=== PATIENT | male | born 1980 | race Caucasian/White ===

== ENCOUNTER 2025-06-12 12:27 | Emergency (ER) | payer OTHER, SELFPAY ==
[2025-06-12 12:43] VITALS: BP 143/90
[2025-06-12 13:06] LABS: Hematocrit 46.3 % (39.0-52.0); Hemoglobin 16.8 g/dL (13.0-18.0); Mean Corp Hgb Conc. 36.3 g/dL (33.0-37.0); Mean Corpuscular Volume 81.4 fL (80.0-94.0); Nucleated Red Blood Cells % 0 % (-); Platelet Count 218 10^3/uL (130-400); Red Cell Dist. Width 12.4 % (11.5-14.5)
[2025-06-12 13:30] LABS: Troponin I < 0.012 ng/ml
[2025-06-12 13:31] LABS: ALT (SGPT) 38 U/L (0-50); AST (SGOT) 27 U/L (17-59); Albumin 4.5 g/dl (3.5-5.0); Alkaline Phosphatase 110 U/L (38-126); Blood Urea Nitrogen 11 mg/dl (9-20); Calcium 9.2 mg/dl (8.4-10.2); Carbon Dioxide 26 mmol/L (22-30); Chloride 101 mmol/L (98-107); Glucose 368 mg/dl (70-99); Potassium 4.5 mmol/L (3.5-5.1); Sodium 134 mmol/L (135-145); Total Protein 7.1 g/dl (6.3-8.2); eGFR > 60.00
[2025-06-12 15:50] VITALS: BP 132/99
[2025-06-12] MEDS: NSS 1000 IV (15:58)
[2025-06-12] MEDS: NOVOLOG vial 10 UNITS SC (15:58)
[2025-06-12 16:05] VITALS: BMI 31.2
[2025-06-12 16:44] LABS: Troponin I < 0.012 ng/ml
[2025-06-12 17:00] LABS: Glucose - Point of Care 297 mg/dl (70-99)
--- NOTE | 2025-06-12 17:24 | ED.GENMED ---
History of Present Illness
General
Chief Complaint: Chest Pain
Time Seen by Provider: 06/12/25 15:23
History of Present Illness
History of Present Illness:
44-year-old male presents the emergency department for evaluation of chest pain that has been ongoing for the past 1 to 2 hours. No obvious provoking or palliating factors. He reports shortness of breath. Symptoms worsen with movement. The pain
woke him up from sleep at 11 AM today. He did take baby aspirin prior to arrival. No fevers, chills, sweats, nausea, vomiting, or diarrhea. He does note recent increased urination and thirst but feels as though this is due to 'poor diet' as he
eats a lot of junk food overnight. Does not routinely seek primary care
Past History
Past History
ED Past Medical History: Other (Kidney stones); Negative IDDM or NIDDM
ED Past Surgical History: Orthopedic; Negative Cardiac or Cholecystectomy
Social History
Tobacco: Non-smoker
Alcohol: None
Drug: None
Personal:
Living: with family
Employment: Employed
Family History
Family History: Other
Review of Systems
Review of Systems
Allergies reviewed?: Yes
All Other Systems: ROS reviewed and negative except as documented in HPI and ROS
Phy Exam
Physical Exam
Physical Exam:
GEN: Well appearing, NAD, WDWN
HEENT: Oral mucosa moist, no scleral icterus
Cardiac: Regular rate and rhythm, no murmur
Lung: No respiratory distress, no tachypnea, lungs clear to auscultation bilaterally
MSK: No gross deformity or injuries
Skin: Good color, no pallor or jaundice, no rashes
Neuro: AO x3, moves all extremities freely
Psych: Calm, cooperative
Scores
Heart Score for Chest Pain Patients
STEMI patient?: No
History: Slightly or Non-Suspicious
ECG: Normal
Age: >45 - <65 years
Risk Factors: 1 or 2 Risk Factors
Troponin: </= Normal Limit
Heart Score for Chest Pain Patients: 2
Heart Score Risk: 2.5% MACE over next 6 weeks
Course
Orders/Labs/Results
Orders:
Orders
06/12/25 12:28
Electrocardiogram (*1) Urgent
Reason for Study: Chest Pain
EKG- Treatment ONCE
06/12/25 12:43
CR Chest - 2 Views Urgent
Comment:
Reason For Exam: chest pain, SOB
06/12/25 12:54
Complete Blood Count/With Diff Urgent
Comprehensive Metabolic Panel Urgent
Troponin I Urgent
06/12/25 15:36
EKG- Treatment ONCE
0.9% Sodium Chloride 1000 ml [Nss] 1,000 ml IV BOLUS
Insulin Aspart [NOVOLOG vial] 10 units SC NOW STA
06/12/25 16:00
Electrocardiogram (*1) Urgent
Reason for Study: Chest Pain
06/12/25 16:03
Troponin I Urgent
Abnormal Lab Results
06/12/25 06/12/25
12:54 16:59
MPV 10.5 H fL
(7.4-10.4)
Sodium 134 L mmol/L
(135-145)
Glucose 368 H mg/dl
(70-99)
POC Glucose 297 H mg/dl
(70-99)
06/12/25 12:54
06/12/25 12:54
Vital Signs
Initial and Last Documented VS:
Initial Vital Signs
Temp Pulse Resp BP Pulse Ox
98.1 F 66 16 143/90 100
06/12/25 12:43 06/12/25 12:43 06/12/25 12:43 06/12/25 12:43 06/12/25 12:43
Last Documented Vital Signs
Temp Pulse Resp BP Pulse Ox
98.1 F 72 15 132/99 96
06/12/25 12:43 06/12/25 17:45 06/12/25 17:45 06/12/25 15:50 06/12/25 17:45
MDM/Problems Addressed
MDM/Problems Addressed:
Patient's cardiac workup is benign. He is noted to be markedly hyperglycemic despite fasting today thus likely indicating new onset diabetes given his polyuria and polydipsia. He was treated with IV fluids and subcutaneous insulin with modest
improvement in glucose. No anion gap or concerns for acidosis. Will start metformin and have him follow-up with primary care, dietary recommendations discussed
Comment
Comment:
EKG initial independently interpreted by me shows normal sinus rhythm with no concerning ST changes. Unchanged delta EKG
*Pulse Oximetry
SaO2: 98
Oxygen Mode of Delivery: Room air
Patient hypoxic: no
*Critical Care Note
Total Time (30-74mins, 75-104mins- exclusive of procedures): Not Applicable
ED Attending Note
-
Portions of this chart may have been created with voice recognition software.� Occasional wrong word or��sound alike� substitutions may have occurred due to the inherent limitations of voice recognition software.
Discharge Plan
Departure
Patient Disposition: Home (Routine Discharge)
Date of Disposition: 06/12/25
Time of Disposition: 17:24
Patient with high blood pressure during this ER visit?: No
Discharge Problem:
Atypical chest pain, Acute hyperglycemia
Instructions: High blood sugar in adults - ED discharge instructions
Prescriptions:
New
metformin 500 mg tablet
500 mg PO BIDWMEAL Qty: 60 0RF
No Action
ibuprofen 600 MG tablet
600 mg PO Q6H Qty: 30 0RF
Patient Comments:
never took any
ondansetron 4 MG tablet,disintegrating
4 mg PO TIDPRN PRN (Reason: NAUSEA) Qty: 20 0RF
acetaminophen [Tylenol Extra Strength] 500 MG tablet
1,000 mg PO Q6 PRN (Reason: pain)
oxycodone-acetaminophen 5 MG/325 MG tablet
1 tab PO Q4HPRN PRN (Reason: Pain) Qty: 15 0RF
tamsulosin 0.4 MG capsule
0.4 mg PO DAILY Qty: 7 0RF
ondansetron 4 MG tablet,disintegrating
4 mg PO Q8HPRN PRN (Reason: Nausea/Vomiting) Qty: 10 0RF
Referrals:
NONE,* [Active, Internal Medicine]
Activity Restrictions/Additional Instructions:
Increase protein and fats while decreasing carbohydrate intake
Carbohydrates can still be eaten, but limited to complex (aka, not simple sugars/processed sugars)
See your primary doctor in 2-4 weeks for follow up
Interventions
Interventions:
*Risk Screen - Suicide Last Done: 06/12/25 18:23
*General Assessment Last Done: 06/12/25 16:06
*Neglect/Abuse Screening Last Done: 06/12/25 16:06
*ED- Fall Risk Assessment Last Done: 06/12/25 16:06
*ED COVID-19 Vaccine History Last Done: 06/12/25 16:06
*Nursing Disposition Last Done: 06/12/25 18:23
ED- Cardiac Assessment Last Done: 06/12/25 16:06
Discharge Date and Time
Discharge Date/Time: 06/12/25 18:24
Print Language: ITALIAN
== END 2025-06-12 18:24 | disposition home or self-care (01) ==
LOC: EMR 12:27
PROVIDERS: Emergency Medicine; Physician Assistant; EMERGENCY PHYSICIAN Emergency Medicine; FAMILY PHYSICIAN Family Medicine
DX: R07.9 Chest pain, unspecified (principal); R73.9 Hyperglycemia, unspecified; Z87.442 Personal history of urinary calculi
CPT/HCPCS: 96372; 96360; 99285; 71046; 80053; 82962; 84484; 85025; 93005

== ENCOUNTER 2025-06-19 23:29 | Emergency (ER) | payer OTHER, SELFPAY ==
[2025-06-19 23:30] VITALS: BP 124/94
[2025-06-19 23:55] LABS: Hematocrit 44.4 % (39.0-52.0); Hemoglobin 16.1 g/dL (13.0-18.0); Mean Corp Hgb Conc. 36.3 g/dL (33.0-37.0); Mean Corpuscular Volume 81.2 fL (80.0-94.0); Nucleated Red Blood Cells % 0 % (-); Platelet Count 214 10^3/uL (130-400); Red Cell Dist. Width 12.1 % (11.5-14.5)
[2025-06-20 00:21] LABS: ALT (SGPT) 44 U/L (0-50); AST (SGOT) 25 U/L (17-59); Albumin 4.5 g/dl (3.5-5.0); Alkaline Phosphatase 88 U/L (38-126); Blood Urea Nitrogen 14 mg/dl (9-20); Calcium 9.6 mg/dl (8.4-10.2); Carbon Dioxide 23 mmol/L (22-30); Chloride 102 mmol/L (98-107); Glucose 368 mg/dl (70-99); Potassium 4.4 mmol/L (3.5-5.1); Sodium 133 mmol/L (135-145); Total Protein 7.3 g/dl (6.3-8.2); eGFR > 60.00
--- NOTE | 2025-06-20 00:57 | ED.GENMED ---
History of Present Illness
General
Chief Complaint: Blood Sugar Problem
Source: patient
Exam Limitations: none
Time Seen by Provider: 06/20/25 00:55
History of Present Illness
History of Present Illness:
See MDM
Past History
Past History
ED Past Medical History: NIDDM and Other (Kidney stones); Negative IDDM
ED Past Surgical History: Orthopedic; Negative Cardiac or Cholecystectomy
Social History
Tobacco: Non-smoker
Alcohol: None
Drug: None
Personal:
Living: with family
Employment: Employed
Family History
Family History: Other
Phy Exam
Physical Exam
Physical Exam:
See MDM
Course
Orders/Labs/Results
Orders:
Orders
06/19/25 23:38
B-Hydroxybutyrate Urgent
Complete Blood Count/With Diff Urgent
Comprehensive Metabolic Panel Urgent
06/20/25 00:46
0.9% Sodium Chloride 1000 ml [Nss] 1,000 ml IV BOLUS
Insulin Aspart [NOVOLOG vial] 5 units SC NOW STA
Abnormal Lab Results
06/19/25 06/20/25
23:38 02:40
MPV 10.5 H fL
(7.4-10.4)
Abs Immat Gran (auto) 0.1 H 10^3/uL
(0-0.05)
Absolute Monos (auto) 0.7 H 10^3/uL
(0.1-0.6)
Immature Gran % 0.6 H %
(0-0.5)
Sodium 133 L mmol/L
(135-145)
Creatinine 0.6 L mg/dL
(0.7-1.3)
Glucose 368 H mg/dl
(70-99)
Total Bilirubin 1.4 H mg/dl
(0.2-1.3)
POC Glucose 270 H mg/dl
(70-99)
06/19/25 23:38
06/19/25 23:38
Vital Signs
Initial and Last Documented VS:
Initial Vital Signs
Temp Pulse Resp BP Pulse Ox
97.8 F 90 20 124/94 98
06/19/25 23:30 06/19/25 23:30 06/19/25 23:30 06/19/25 23:30 06/19/25 23:30
Last Documented Vital Signs
Temp Pulse Resp BP Pulse Ox
97.8 F 90 20 124/94 98
06/19/25 23:30 06/19/25 23:30 06/19/25 23:30 06/19/25 23:30 06/20/25 01:00
MDM/Problems Addressed
Differential Diagnosis Includes:
Note:
CHIEF COMPLAINT(S)
Blood glucose level significantly elevated at home.
HISTORY OF PRESENT ILLNESS
The patient is a 44-year-old male who presents today due to concerns about elevated blood glucose levels. The patient reports discovering a blood glucose kip and his first recorded reading was approximately 450 mg/dL. The patient�s spouse
recommended coming in for evaluation. The patient noted previous intolerance to Metformin, having experienced migraine headaches after taking it for two days, resulting in discontinuation of the medication. The patient recently saw a primary care
physician and was prescribed Mounjaro (Tirzepatide) but has yet to start it due to concerns about potential side effects.
The patient reports intermittent increased urination, mostly at night, but denies significant symptoms suggestive of a severe diabetic emergency, such as fruity breath or confusion. He is aware of the need for lifestyle adjustment and expressed
concerns about managing diabetes, including the impact of dietary choices on his condition. The patient notes having tried to monitor his blood sugar intermittently, with levels ranging from the 360s to 390s in different settings, such as at home
and during a recent visit to the parking lot.
The patient expresses uncertainty about how seriously to take the condition and acknowledges his spouses concerns about potential health complications. Current plans with his primary care provider include starting Mounjaro and following up in three
weeks for assessment and potential dose adjustment.
SOCIAL DETERMINANTS AFFECTING HEALTH
The patient reports that his urged him to seek medical attention for his symptoms. He expresses uncertainty regarding lifestyle changes needed for managing diabetes and notes dietary indulgence, mentioning carrying candy in his pocket.
MEDICATIONS
- Prescribed and recently filled: Mounjaro (Tirzepatide), not yet taken.
REVIEW OF SYSTEMS
- General: Reports concerns about the elevated blood glucose.
- Renal/Urinary: Reports increased urination mainly at night.
- Neurological: History of migraine headaches associated with Metformin use.
PHYSICAL EXAM
General: Alert, no acute distress.
Skin: Warm, dry.
Head: Normocephalic, atraumatic
Neck: Appears supple, trachea midline.
Eyes, Ears, Nose, Mouth, and Throat: dry mucous membranes
Cardiovascular: No signs of cyanosis. Regular rate and rhythm
Respiratory: Respirations are non-labored. Lungs clear
Abdomen: Non-distended
Musculoskeletal: No deformities
Neurological: No focal neurological deficit observed.
Psychiatric: Cooperative, appropriate mood and affect.
PROBLEM LIST
Acute:
- Hyperglycemia
Chronic:
- Type 2 Diabetes Mellitus with concern for poor treatment adherence and management.
PLAN
- Administer intravenous fluids to help reduce blood glucose levels through dilution.
- Provide a small dose of insulin to assist in reducing hyperglycemia.
- Continue with Mounjaro medication and encourage adherence to the prescribed diabetic management plan.
- Recommend dietary modification focusing on carbohydrate reduction and improved glycemic control.
- Discuss lifestyle changes necessary for managing diabetes and reducing risk factors.
- Confirm follow-up with the primary care physician in three weeks to reassess blood glucose levels and medication efficacy.
DIFFERENTIAL DIAGNOSIS
The Differential Diagnosis includes, in no particular order and is not limited to:
- Diabetic Ketoacidosis (less probable given low symptom severity)
- Hyperosmolar Hyperglycemic State (HHS)
- Hyperglycemia secondary to non-compliance or lifestyle factors.
- Possible intolerance or side effects to current medication regimen.
- Stress-induced hyperglycemia.
- Underlying infection or illness triggering glucose imbalance.
- Medication-induced hyperglycemia.
- White coat hypertension leading to stress-induced hyperglycemia.
- Possible hemoconcentration affecting glucose levels.
- Errors in blood glucose testing.
06/20/25 - 02:43
Blood sugar levels responding to treatment; continue monitoring and adjust insulin coverage as needed. Consider reassessment if levels do not stabilize.
SUMMARY OF ENCOUNTER
The patient, a 44-year-old male, was seen in the emergency department due to significantly elevated blood glucose levels. Upon evaluation, the patient reported home blood glucose readings ranging from 360s to 450 mg/dL. He experienced intolerance to
Metformin due to migraine headaches and thus discontinued its use. Though prescribed Tirzepatide (branded as Mounjaro), he has not started it due to concerns over side effects. The patient admitted to increased urination at night but denied symptoms
like fruity breath or confusion indicative of diabetic ketoacidosis, making DKA less likely. His condition appears exacerbated by poor dietary habits and noncompliance with medication. Emergency management involved administering intravenous fluids
for blood glucose reduction and a small insulin dose, addressing hyperglycemia. The patient discussed dietary changes and plans to initiate the prescribed diabetes management plan with future follow-ups with his primary care physician.
ASSESSMENT
The patient is experiencing hyperglycemia likely due to lifestyle factors and non-compliance with prescribed diabetes treatment.
EMERGENCY TREATMENTS ADMINISTERED
- Intravenous fluids
- Insulin administration
PLAN
- Continue prescribed Tirzepatide (Mounjaro) and reinforce adherence to the diabetes management regimen.
- Encourage dietary modification prioritizing carbohydrate reduction for improved glycemic control.
- Discuss necessary lifestyle changes focusing on comprehensive diabetes management strategies.
- Confirm upcoming follow-up appointment with primary care physician in three weeks for reviewing blood glucose levels and assessing medication efficacy.
PATIENT EDUCATION AND COUNSELING
The patient was educated on the importance of adhering to prescribed medication and implementing dietary changes to control diabetes effectively. Counseling also focused on understanding the risks associated with uncontrolled blood sugar levels.
FOLLOW-UP INSTRUCTIONS
The patient should schedule and attend a follow-up appointment with their primary care physician in three weeks to reassess blood glucose levels and the effectiveness of their diabetes management plan.
MEDICATION RECONCILIATION
- Prescribed but not yet taken: Tirzepatide (Mounjaro)
MEDICAL DECISION MAKING
1. Number and Complexity of Problems Addressed:
- Chronic conditions affecting care: Type 2 Diabetes Mellitus, poor treatment adherence
2. Data:
Category 1:
- Reviewed outpatient pharmacy records for medication Tirzepatide (Mounjaro).
Category 2:
- Clinical information obtained from the patient�s report of past blood glucose testing and symptoms.
3. Risk:
- Prescription drug management for diabetes requiring ongoing monitoring was emphasized to the patient.
- Care significantly affected by social determinants, including dietary habits and medication compliance issues.
DIAGNOSIS
- E11.65 Type 2 diabetes mellitus with hyperglycemia
*Pulse Oximetry
SaO2: 98
Patient hypoxic: no
*Critical Care Note
Total Time (30-74mins, 75-104mins- exclusive of procedures): Not Applicable
ED Attending Note
-
Portions of this chart may have been created with voice recognition software.� Occasional wrong word or��sound alike� substitutions may have occurred due to the inherent limitations of voice recognition software.
Discharge Plan
Departure
Patient Disposition: Home (Routine Discharge)
Date of Disposition: 06/20/25
Time of Disposition: 02:45
Patient with high blood pressure during this ER visit?: No
Discharge Problem:
Hyperglycemia
Prescriptions:
No Action
ibuprofen 600 MG tablet
600 mg PO Q6H Qty: 30 0RF
Patient Comments:
never took any
ondansetron 4 MG tablet,disintegrating
4 mg PO TIDPRN PRN (Reason: NAUSEA) Qty: 20 0RF
acetaminophen [Tylenol Extra Strength] 500 MG tablet
1,000 mg PO Q6 PRN (Reason: pain)
oxycodone-acetaminophen 5 MG/325 MG tablet
1 tab PO Q4HPRN PRN (Reason: Pain) Qty: 15 0RF
tamsulosin 0.4 MG capsule
0.4 mg PO DAILY Qty: 7 0RF
ondansetron 4 MG tablet,disintegrating
4 mg PO Q8HPRN PRN (Reason: Nausea/Vomiting) Qty: 10 0RF
metformin 500 mg tablet
500 mg PO BIDWMEAL Qty: 60 0RF
Referrals:
Tal Andres MD [Family Provider, Family Practice]
Activity Restrictions/Additional Instructions:
Please return for any worsening symptoms.
You may return at any time if you have further concerns.
Please follow up with your doctor at the first available appointment, preferably this week.
Please take your medication as prescribed.
Thank you for choosing [facility].
Interventions
Interventions:
*Risk Screen - Suicide Last Done: 06/19/25 23:30
*Neglect/Abuse Screening Last Done: 06/19/25 23:30
*ED- Fall Risk Assessment Last Done: 06/20/25 02:23
*ED COVID-19 Vaccine History Last Done: 06/20/25 02:23
ED- Neurological Assessment Last Done: 06/20/25 02:24
Discharge Date and Time
Print Language: DOMINICAN
[2025-06-20] MEDS: NSS 1000 IV (01:27)
[2025-06-20] MEDS: NOVOLOG vial 5 UNITS SC (01:39)
[2025-06-20 02:42] LABS: Glucose - Point of Care 270 mg/dl (70-99)
== END 2025-06-20 02:57 | disposition home or self-care (01) ==
LOC: EMR 23:29
PROVIDERS: Emergency Medicine; EMERGENCY PHYSICIAN Student in an Organized Health Care Education/Training Program; FAMILY PHYSICIAN Family Medicine
DX: E11.65 Type 2 diabetes mellitus with hyperglycemia (principal); Z91.148 Patient's other noncompliance with medication regimen for other reason; Z88.1 Allergy status to other antibiotic agents; Z88.2 Allergy status to sulfonamides
CPT/HCPCS: 99284; 96360; 96372; 80053; 82010; 82962; 85025

== ENCOUNTER → 2025-06-28 14:09 | Outpatient (REF) | payer OTHER, SELFPAY | LOC: HWRAD 14:09 | PROVIDERS: ATTENDING PHYSICIAN Physician Assistant; FAMILY PHYSICIAN Family Medicine | DX: R10.9 Unspecified abdominal pain (principal) | CPT/HCPCS: 74176 ==

== ENCOUNTER 2025-07-07 21:08 | Emergency (ER) | payer OTHER, SELFPAY ==
[2025-07-07 21:11] VITALS: BP 164/98
[2025-07-07 22:17] VITALS: BP 131/70; BMI 32.6
[2025-07-07 23:00] VITALS: BP 141/88
--- NOTE | 2025-07-07 23:05 | ED.GENMED ---
History of Present Illness
General
Chief Complaint: Flank Pain
Source: patient
Exam Limitations: none
Time Seen by Provider: 07/07/25 22:50
History of Present Illness
History of Present Illness:
See MDM
Past History
Past History
ED Past Medical History: NIDDM and Other (Kidney stones); Negative IDDM
ED Past Surgical History: Orthopedic; Negative Cardiac or Cholecystectomy
Social History
Tobacco: Non-smoker
Alcohol: None
Drug: None
Personal:
Living: with family
Employment: Employed
Family History
Family History: Other
Phy Exam
Physical Exam
Physical Exam:
See MDM
Course
Orders/Labs/Results
Orders:
Orders
07/07/25 23:01
0.9% Sodium Chloride 1000 ml [Nss] 1,000 ml IV BOLUS
Ketorolac [Toradol] 30 mg IV NOW STA
Morphine Sulfate 4 mg IV NOW STA
Ondansetron Injectable [Zofran] 4 mg IV NOW STA
07/07/25 23:17
Complete Blood Count/With Diff Urgent
Comprehensive Metabolic Panel Urgent
07/07/25 23:22
Urinalysis Reflex To Culture Urgent
Date Specimen was Collected: 07/07/25
Time Specimen was Collected: 23:21
Urine Microscopic Reflex Cult Urgent
Urine Culture Urgent
TI Source: U
Specimen Description:
Date Specimen was Collected: 07/07/25
Time Specimen was Collected: 23:21
07/08/25 00:00
CT Abd/pel Without Iv Or Oral Urgent
Reason For Exam: Left flank pain
Abnormal Lab Results
07/07/25 07/07/25
23:17 23:22
WBC 14.2 H 10^3/uL
(4.8-10.8)
Abs Immat Gran (auto) 0.1 H 10^3/uL
(0-0.05)
Absolute Neuts (auto) 11.5 H 10^3/uL
(1.4-6.5)
Absolute Monos (auto) 0.7 H 10^3/uL
(0.1-0.6)
Neutrophils % 80.7 H %
(42.2-75.2)
Lymphocytes % 13.3 L %
(20.5-51.1)
Sodium 133 L mmol/L
(135-145)
Glucose 281 H mg/dl
(70-99)
Urine Ketones 1+ A
(Negative)
Ur Occult Blood Reflex 4+ A
(Negative)
Leukocyte Esterase Rfl 1+ A
(Negative)
Urine RBC 16-20 A /HPF
(0-2)
Urine WBC (Reflex) 11-15 A /HPF
(0-5)
Urine Bacteria (Reflex) Moderate A
(Negative)
Urine Glucose 3+ A
(Negative)
07/07/25 23:17
07/07/25 23:17
Vital Signs
Initial and Last Documented VS:
Initial Vital Signs
Temp Pulse Resp BP Pulse Ox
98.5 F 82 16 164/98 99
07/07/25 21:11 07/07/25 21:11 07/07/25 21:11 07/07/25 21:11 07/07/25 21:11
Last Documented Vital Signs
Temp Pulse Resp BP Pulse Ox
98.5 F 82 16 133/81 95
07/07/25 21:11 07/07/25 21:11 07/07/25 21:11 07/08/25 01:00 07/08/25 01:30
MDM/Problems Addressed
Differential Diagnosis Includes:
Note:
CHIEF COMPLAINT(S)
Severe flank pain with nausea and radiating pain to the testicles.
HISTORY OF PRESENT ILLNESS
The patient is a 44-year-old male with a history of kidney stones who presented with worsening flank pain. The pain started after a scheduled procedure for stone removal and has increased in severity. The patient reports that the pain is manageable
when lying down but intensifies significantly with movement, such as going to the bathroom or eating, describing the pain as feeling like a 'knife in there.' He experiences waves of pain approximately once an hour, which today persisted for extended
periods, radiating to the testicles. The patient also felt intense nausea, with a sensation of impending vomiting. The patient was advised by the urologist to seek emergency care due to the severity of nausea and pain.
The patient had ceased his diabetes medication, Manjaro, as directed in preparation for surgery. While he was previously prescribed pain medications such as Ketorolac and Cyclobenzaprine, he noted that Cyclobenzaprine only induced sleep without
alleviating pain. The patient has not resumed the diabetes medication and is currently awaiting further management for his diabetes.
EXTERNAL RECORDS REVIEWED
A review of prior imaging (CT scan) indicated the presence of a kidney stone, approximately twice the size of 10 millimeters, suggesting a significant obstruction.
CHRONIC MEDICAL CONDITIONS SIGNIFICANTLY AFFECTING CARE
- Diabetes
SOCIAL DETERMINANTS AFFECTING HEALTH
The patient has familial responsibilities, which influence his decision about potential hospitalization for pain management and kidney stone treatment.
MEDICATIONS
The patient was previously prescribed Ketorolac and Cyclobenzaprine for pain management before ceasing due to preparatory requirements for kidney stone surgery.
REVIEW OF SYSTEMS
- Gastrointestinal: Nausea with a sensation of vomiting.
- Genitourinary: Radiating pain to the testicles.
- Musculoskeletal: Flank pain described as fluctuating in intensity.
- General: Pain significantly limits mobility and exacerbates upon movement.
PHYSICAL EXAM
General: Alert, no acute distress.
Skin: Warm, dry.
Head: Normocephalic, atraumatic
Neck: Appears supple, trachea midline.
Eyes, Ears, Nose, Mouth, and Throat: Oral mucosa moist.
Cardiovascular: No signs of cyanosis
Respiratory: Respirations are non-labored.
Abdomen: Non-distended and nontender
Musculoskeletal: No deformities
Neurological: No focal neurological deficit observed.
Psychiatric: Cooperative, appropriate mood and affect.
PROBLEM LIST
Acute Problems:
- Severe flank pain due to kidney stone.
- Nausea.
Chronic Problems:
- Diabetes.
PLAN
- Perform repeat CT scan to assess the current status and possible movement of the kidney stone.
- Check blood work and urine analysis to rule out any infection.
- Administer IV pain and nausea medications, including morphine and an IV form of Ketorolac.
- Consider potential need for hospitalization versus outpatient management once diagnostic results are available.
- Consult with the urologist regarding possible surgical interventions given the stone size and symptoms.
DIFFERENTIAL DIAGNOSIS
The Differential Diagnosis includes, in no particular order and is not limited to:
- Renal colic
- Nephrolithiasis
- Ureteral stone
- Pyelonephritis
- Testicular torsion
- Epididymitis
- Urinary tract infection
- Abdominal aortic aneurysm
- Spinal nerve root compression
- Gastroenteritis
*Pulse Oximetry
SaO2: 98
Oxygen Mode of Delivery: Room air
Patient hypoxic: no
*Critical Care Note
Total Time (30-74mins, 75-104mins- exclusive of procedures): Not Applicable
Update Note
Update Note:
CT does not show significant change from prior. I did offer admission for urology evaluation and possible stent placement. Because patient is feeling better, he feels comfortable going home and will call his urology
ED Attending Note
-
Portions of this chart may have been created with voice recognition software.� Occasional wrong word or��sound alike� substitutions may have occurred due to the inherent limitations of voice recognition software.
Discharge Plan
Departure
Patient Disposition: Home (Routine Discharge)
Date of Disposition: 07/08/25
Time of Disposition: 01:53
Patient with high blood pressure during this ER visit?: No
Discharge Problem:
Kidney stone on left side
Instructions: Kidney Stones (DC)
Prescriptions:
New
ondansetron 4 mg Tablet,Disintegrating
4 mg PO BIDPRN PRN (Reason: nausea/vomiting) Qty: 10 0RF
oxycodone 5 mg tablet
5 mg PO Q8H PRN (Reason: Pain) Qty: 14 0RF
oxycodone 5 mg tablet
5 mg PO TID PRN (Reason: Pain) Qty: 5 0RF
No Action
ibuprofen 600 MG tablet
600 mg PO Q6H Qty: 30 0RF
Patient Comments:
never took any
ondansetron 4 MG tablet,disintegrating
4 mg PO TIDPRN PRN (Reason: NAUSEA) Qty: 20 0RF
acetaminophen [Tylenol Extra Strength] 500 MG tablet
1,000 mg PO Q6 PRN (Reason: pain)
oxycodone-acetaminophen 5 MG/325 MG tablet
1 tab PO Q4HPRN PRN (Reason: Pain) Qty: 15 0RF
tamsulosin 0.4 MG capsule
0.4 mg PO DAILY Qty: 7 0RF
ondansetron 4 MG tablet,disintegrating
4 mg PO Q8HPRN PRN (Reason: Nausea/Vomiting) Qty: 10 0RF
metformin 500 mg tablet
500 mg PO BIDWMEAL Qty: 60 0RF
Referrals:
Tal Andres MD [Family Provider, Family Practice]
Activity Restrictions/Additional Instructions:
Please return for any worsening symptoms.
You may return at any time if you have further concerns.
Please follow up with your urologist.
Thank you for choosing [facility].
Interventions
Interventions:
*Risk Screen - Suicide Last Done: 07/07/25 21:11
*General Assessment Last Done: 07/07/25 22:17
*Neglect/Abuse Screening Last Done: 07/07/25 21:11
*ED- Fall Risk Assessment Last Done: 07/07/25 22:17
*ED COVID-19 Vaccine History Last Done: 07/07/25 22:17
*Nursing Disposition Last Done: 07/08/25 02:06
JO-Udwtte-Uqwsyxuzmg Assessment Last Done: 07/07/25 22:17
ED-Male Genitourinary Assessment Last Done: 07/07/25 22:17
Discharge Date and Time
Discharge Date/Time: 07/08/25 02:08
Print Language: UPPER SORBIAN
[2025-07-07] MEDS: TORADOL 30 MG IV (23:17)
[2025-07-07] MEDS: ZOFRAN 4 MG IV (23:17)
[2025-07-07] MEDS: MORPHINE SULFATE 4 MG IV (23:18)
[2025-07-07] MEDS: NSS 1000 IV (23:20)
[2025-07-07 23:29] LABS: Hematocrit 44.9 % (39.0-52.0); Hemoglobin 16.0 g/dL (13.0-18.0); Mean Corp Hgb Conc. 35.6 g/dL (33.0-37.0); Mean Corpuscular Volume 81.6 fL (80.0-94.0); Nucleated Red Blood Cells % 0 % (-); Platelet Count 221 10^3/uL (130-400); Red Cell Dist. Width 11.9 % (11.5-14.5)
[2025-07-07 23:30] LABS: Urine Character Clear (Clear)
[2025-07-07 23:53] LABS: ALT (SGPT) 45 U/L (0-50); AST (SGOT) 27 U/L (17-59); Albumin 4.4 g/dl (3.5-5.0); Alkaline Phosphatase 88 U/L (38-126); Blood Urea Nitrogen 18 mg/dl (9-20); Calcium 9.9 mg/dl (8.4-10.2); Carbon Dioxide 27 mmol/L (22-30); Chloride 99 mmol/L (98-107); Estimated Creatinine Clearance > 125 ml/min; Glucose 281 mg/dl (70-99); Potassium 4.4 mmol/L (3.5-5.1); Sodium 133 mmol/L (135-145); Total Protein 6.9 g/dl (6.3-8.2); eGFR > 60.00
[2025-07-08] VITALS: BP 126/80
[2025-07-08 00:27] LABS: Urine Red Blood Cell 16-20 /HPF (0-2)
[2025-07-08 01:00] VITALS: BP 133/81
== END 2025-07-08 02:08 | disposition home or self-care (01) ==
LOC: EMR 21:08
PROVIDERS: EMERGENCY PHYSICIAN Student in an Organized Health Care Education/Training Program; FAMILY PHYSICIAN Family Medicine
DX: N20.0 Calculus of kidney (principal); E11.9 Type 2 diabetes mellitus without complications
CPT/HCPCS: 96374; 96375; 96361; 99284; 74176; 80053; 81003; 81015; 85025; 87086

== ENCOUNTER 2025-07-13 06:15 | Day surgery (SDC) | payer OTHER, SELFPAY ==
--- NOTE | 2025-07-06 13:07 | PTCARENOTE ---
Patients 06/19 glucose 368- Emili @ Dr. Garcia office notified
[2025-07-13] VITALS (7 sets, daily range): BP systolic 116–147; BP diastolic 75–93; BMI 30.8
[2025-07-13 09:11] LABS: Glucose - Point of Care 265 mg/dl (70-99)
[2025-07-13] MEDS: NORMOSOL-R/PLASMALYTE-A 1000 IV (09:22)
[2025-07-13] MEDS: NOVOLOG vial 4 UNITS SC ×2 (09:40→11:46)
[2025-07-13 11:27] LABS: Glucose - Point of Care 271 mg/dl (70-99)
== END 2025-07-13 13:00 | disposition home or self-care (01) ==
LOC: SDS 06:15
PROVIDERS: ATTENDING PHYSICIAN Specialist
DX: N20.0 Calculus of kidney (principal)
CPT/HCPCS: 52356; 74018; 76000; 82365; 82962; C2617